=== PATIENT | male | born 1980 ===

== ENCOUNTER 2024-08-23 03:40 | Emergency (ER) | payer OTHER ==
[~2024-08-23] VITALS: Ht 177.8 cm; Wt 90.7 kg
[~2024-08-23 03:40] MED LIST: AZIT250 PO; CEPH500 PO; SULTRIDS PO
[2024-08-23 03:49] VITALS: BP 174/108
[2024-08-23 04:37] LABS: Influenza A, PCR NEGATIVE (NEGATIVE); Influenza B, PCR NEGATIVE (NEGATIVE); Resp Syncytial Virus, PCR NEGATIVE (NEGATIVE); SARS-Cov-2 (COVID-19) PCR, MMC NEGATIVE (NEGATIVE)
[2024-08-23] MEDS ORDERED: Ibuprofen 600 MG Tab PO ONE (04:55)
[2024-08-23] MEDS ORDERED: Acetaminophen 500 MG Tab PO ONE (04:55)
[2024-08-23] MEDS ORDERED: BENZ100A PO (05:08)
== END 2024-08-23 05:17 | disposition home or self-care (01) ==
LOC: ER 03:40
PROVIDERS: Emergency Medicine
DX: J06.9 Acute upper respiratory infection, unspecified (principal); F17.210 Nicotine dependence, cigarettes, uncomplicated; Z88.0 Allergy status to penicillin
CPT/HCPCS: 0241U; 71046; 99283-25; A9270